=== PATIENT | male | born 1980 | race Caucasian/White ===

== ENCOUNTER 2017-06-17 10:52 | Emergency (ER) | payer OTHER ==
[2017-06-17] MEDS ORDERED: Ketorolac 60 MG/2 ML SDV IM ONE (11:18)
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
--- NOTE | 2017-06-17 12:39 | CR ---
EXAMINATION: Lumbar spine HISTORY: Pain COMPARISON: None TECHNIQUE: 3 views FINDINGS: The lumbar spinal alignment is normal. The vertebral body heights and disc spaces appear we ll-maintained. No fracture or dislocation. Mild marginal osteophytes noted at L1-L2. The SI joints ar e symmetric. Bone mineralization is normal. IMPRESSION: 1. Minimal degenerative changes without acute findings.
[2017-06-17 13:23] VITALS: BP 122/77
== END 2017-06-17 13:17 | disposition home or self-care (01) ==
LOC: MW.ED 10:52
DX: M54.40 Lumbago with sciatica, unspecified side (principal)
CPT/HCPCS: 72100; 96372; 99283; J1885; J2360

== ENCOUNTER 2019-10-05 11:25 | Emergency (ER) | payer OTHER ==
[2019-10-05] MEDS ORDERED: Albuterol/Ipratropium 3.0-0.5 MG/3 ML Neb Soln NEB ONE (11:28)
[2019-10-05] MEDS ORDERED: Albuterol/Ipratropium 3.0-0.5 MG/3 ML Neb Soln ONE (11:29)
[2019-10-05] MEDS ORDERED: methylPREDNISolone Sodium Succinate 125 MG/2 ML SDV IVPUSH ONE (11:30)
--- NOTE | 2019-10-05 11:32 | EDM.PDOC ---
ED HPI GENERAL MEDICAL PROBLEM - General Stated Complaint: SOB, CHEST PRESSURE Time Seen by Provider: 10/05/19 11:27 Source of Information: Reports: Patient History Limitations: Reports: No Limitations - History of Present Illness INITIAL COMMENTS - FREE TEXT/NARRATIVE: HISTORY AND PHYSICAL: History of present illness: Patient is a 39-year-old male who presents to the emergency room with complaints of shortness of breath and cough. He states he has had a cough for a week and a half and over the past few days has had increased shortness of breath. He does have chills although does not believe he has had any fevers. Patient denies any neck pain/stiffness, headache, change in vision, syncope or near syncope. Denies any chest pain, back pain, abdominal pain, nausea, vomiting , diarrhea, constipation or dysuria. Patient has been eating and drinking appropriately. Review of systems: As per history of present illness and below otherwise all systems reviewed and negative. Past medical history: As per history of present illness and as reviewed below otherwise noncontributory. Surgical history: As per history of present illness and as reviewed below otherwise noncontributory. Social history: See social history for further information Family history: As per history of present illness and as reviewed below otherwise noncontributory. Physical exam: General: Well developed and well nourished 39-year-old male. Alert and oriented. Nontoxic-appearing and in no acute distress. HEENT: Atraumatic, normocephalic, pupils equal and reactive bilaterally, negative for conjunctival pallor or scleral icterus, mucous membranes dry, TMs normal bilaterally, throat clear, neck supple, nontender, trachea midline. No drooling or trismus noted. No meningeal signs. No hot potato voice noted. Lungs: Side is clear to auscultation -right-sided rhonchi with expiratory wheezing, breath sounds equal bilaterally, chest nontender. Heart: S1S2, regular rate and rhythm without overt murmur Abdomen: Soft, nondistended, nontender. Negative for masses or hepatosplenomegaly. Negative for costovertebral tenderness. Pelvis: Stable nontender. Skin: Intact, warm, dry. No lesions or rashes noted. Extremities: Atraumatic, moves all extremities per self without difficulty or deficits, negative for cords or calf pain. Neurovascular unremarkable. Neuro: Awake, alert, oriented. Cranial nerves II through XII unremarkable. Cerebellum unremarkable. Motor and sensory unremarkable throughout. Exam nonfocal. Notes: Diagnostics are unremarkable. Due to longevity of symptoms and physical exam I will treat with antibiotics and steroid. Lung sounds have improved after the DuoNeb and steroid. Vital signs remained stable. Supportive care measures were reviewed and discussed. Voices understanding and is agreeable to plan of care. Denies any further questions or concerns at this time. Diagnostics: CBC, CMP, chest x-ray, influenza Therapeutics: DuoNeb, Solu-Medrol Prescription: Zpak Medrol Dosepak Pro-Air Inhaler Impression: Bronchitis Plan: 1. Take the medications as prescribed please use Tylenol and/or Ibuprofen as needed for pain and fever management. The albuterol inhaler can be 2 puffs every 4 hours as needed for wheezing and difficulty breathing. 2. Get plenty of Rest. Encourage fluids to prevent dehydration. 3. Please follow up with your primary care provider. Return to the ED as needed as discussed. Definitive disposition and diagnosis as appropriate pending reevaluation and review of above. mid sternal Pain Score (Numeric/FACES): 8 - Related Data Allergies Allergy/AdvReac Type Severity Reaction Status Date / Time No Known Allergies Allergy Verified 10/05/19 11:37 Home Meds: Home Meds Escitalopram Oxalate [Lexapro] 1 tab PO DAILY 10/05/19 [History] Mirtazapine [Remeron] 1 tab PO DAILY 10/05/19 [History] busPIRone HCl [busPIRone] 1 tab PO DAILY 10/05/19 [History] Past Medical History - Past Health History Medical/Surgical History: Denies Medical/Surgical History Social & Family History - Family History Family Medical History: Noncontributory ED ROS GENERAL - Review of Systems Review Of Systems: Comprehensive ROS is negative, except as noted in HPI. ED EXAM, GENERAL - Physical Exam Exam: See Below (See dictation) Course - Vital Signs Last Recorded V/S: Last Vital Signs Temp 97.9 F 10/05/19 11:58 Pulse 66 10/05/19 11:58 Resp 16 10/05/19 11:58 BP 117/79 10/05/19 11:58 Pulse Ox 95 10/05/19 11:58 - Orders/Labs/Meds Orders: Active Orders 24 hr Category Date Time Status EKG Documentation Completion [RC] STAT Care 10/05/19 11:33 Active RT Aerosol Therapy [RC] ASDIRECTED Care 10/05/19 11:28 Active COMPREHENSIVE METABOLIC PN,CMP [CHEM] Stat Lab 10/05/19 11:38 Received Labs: Laboratory Tests 10/05/19 Range/Units 11:38 WBC 6.96 (4.0-11.0) K/uL RBC 5.33 (4.50-5.90) M/uL Hgb 16.1 (13.0-17.0) g/dL Hct 45.5 (38.0-50.0) % MCV 85.4 (80.0-98.0) fL MCH 30.2 (27.0-32.0) pg MCHC 35.4 (31.0-37.0) g/dL RDW Std Deviation 39.3 (28.0-62.0) fl RDW Coeff of Fadia 13 (11.0-15.0) % Plt Count 256 (150-400) K/uL MPV 9.90 (7.40-12.00) fL Neut % (Auto) 60.2 (48.0-80.0) % Lymph % (Auto) 26.4 (16.0-40.0) % Bremer % (Auto) 12.5 (0.0-15.0) % Eos % (Auto) 0.6 (0.0-7.0) % Baso % (Auto) 0.3 (0.0-1.5) % Neut # (Auto) 4.2 (1.4-5.7) K/uL Lymph # (Auto) 1.8 (0.6-2.4) K/uL Bremer # (Auto) 0.9 H (0.0-0.8) K/uL Eos # (Auto) 0.0 (0.0-0.7) K/uL Baso # (Auto) 0.0 (0.0-0.1) K/uL Nucleated RBC % 0.0 /100WBC Nucleated RBCs # 0 K/uL Meds: Medications Discontinued Medications Generic Name Dose Route Start Last Admin Trade Name Freq PRN Reason Stop Dose Admin Albuterol/Ipratropium 3 ml 10/05/19 11:28 10/05/19 11:35 Duoneb 3.0-0.5 Mg/3 Ml NEB 10/05/19 11:29 3 ml ONETIME ONE Administration Albuterol/Ipratropium Confirm 10/05/19 11:29 10/05/19 11:58 Duoneb 3.0-0.5 Mg/3 Ml Administered 10/05/19 11:30 Not Given Dose 3 ml .ROUTE .STK-MED ONE Methylprednisolone Sodium Succinate 125 mg 10/05/19 11:30 10/05/19 11:56 Solu-Medrol IVPUSH 10/05/19 11:31 125 mg ONETIME ONE Administration Departure - Departure Time of Disposition: 12:37 Disposition: Home, Self-Care 01 Clinical Impression: Bronchitis - Discharge Information Referrals: PCP,None [Primary Care Provider] - Additional Instructions: The following information is given to patients seen in the emergency department who are being discharged to home. This information is to outline your options for follow-up care. We provide all patients seen in our emergency department with a follow-up referral. The need for follow-up, as well as the timing and circumstances, are variable depending upon the specifics of your emergency department visit. If you don't have a primary care physician on staff, we will provide you with a referral. We always advise you to contact your personal physician following an emergency department visit to inform them of the circumstance of the visit and for follow-up with them and/or the need for any referrals to a consulting specialist. The emergency department will also refer you to a specialist when appropriate. This referral assures that you have the opportunity for follow-up care with a specialist. All of these measure are taken in an effort to provide you with optimal care, which includes your follow-up. Under all circumstances we always encourage you to contact your private physician who remains a resource for coordinating your care. When calling for follow-up care, please make the office aware that this follow-up is from your recent emergency room visit. If for any reason you are refused follow-up, please contact the [facility] Emergency Department at and asked to speak to the emergency department charge nurse. [facility] [address] [place] [id number] [facility] [address] [place] [address] 1. Take the medications as prescribed please use Tylenol and/or Ibuprofen as needed for pain and fever management. The albuterol inhaler can be 2 puffs every 4 hours as needed for wheezing and difficulty breathing. 2. Get plenty of Rest. Encourage fluids to prevent dehydration. 3. Please follow up with your primary care provider. Return to the ED as needed as discussed. Sepsis Event Note - Focused Exam Vital Signs: Vital Signs Temp Pulse Resp BP Pulse Ox 10/05/19 11:58 97.9 F 66 16 117/79 95 10/05/19 11:35 97.4 F 68 24 H 136/80 96 Date Exam was Performed: 10/05/19 Time Exam was Performed: 12:32 - My Orders Last 24 Hours: My Active Orders 10/05/19 11:28 RT Aerosol Therapy [RC] ASDIRECTED 10/05/19 11:33 EKG Documentation Completion [RC] STAT 10/05/19 11:38 COMPREHENSIVE METABOLIC PN,CMP [CHEM] Stat - Assessment/Plan Last 24 Hours: My Active Orders 10/05/19 11:28 RT Aerosol Therapy [RC] ASDIRECTED 10/05/19 11:33 EKG Documentation Completion [RC] STAT 10/05/19 11:38 COMPREHENSIVE METABOLIC PN,CMP [CHEM] Stat
[2019-10-05 12:01] VITALS: BP 117/79; PULSE 66
[2019-10-05 12:15] LABS: BLOOD UREA NITROGEN,BUN 15 mg/dL (7.0-18.0); CHLORIDE,CL 103 mmol/L (98-107); GLUCOSE RANDOM 93 mg/dL (74-106); POTASSIUM,K 4.1 mmol/L (3.5-5.1); SODIUM,NA 139 mmol/L (136-148)
--- NOTE | 2019-10-05 12:28 | CR ---
Chest: 2 views of the chest were obtained. Comparison: Prior chest x-ray of 05/15/15. Heart size and mediastinum are normal. Lungs are clear with no acute parenchymal change. Bony structures are unremarkable. Impression: 1. Nothing acute is appreciated on 2 view chest x-ray. Diagnostic code #1 This report was dictated in [place] Standard Time
== END 2019-10-05 13:06 | disposition home or self-care (01) ==
LOC: MW.ED 11:25
DX: J40 Bronchitis, not specified as acute or chronic (principal)
CPT/HCPCS: 36415; 71046; 80053; 85025; 87804; 93005; 94640; 96374; 99285; J2930; 99283; J7620-GY